=== PATIENT | female | born 1985 | race Hispanic/Latino ===

== ENCOUNTER 2017-01-13 18:15 | Emergency (ER) | payer OTHER ==
[2017-01-13 18:38] VITALS: BMI 28.5
[2017-01-13] MEDS ORDERED: Betamethasone Soluspan 30 mg/5mL Inj Susp IM ONE (18:49)
--- NOTE | 2017-01-13 18:49 | OBHP ---
Datetime: 01/13/2017 18:44 IP Adm Impression: , intrauterine ; No Active Labor IP Admit Plan: Observation/Evaluation; Discharge home Admit Comment, IP Provider: The patient presents to labor and delivery for the administration of alan roids. Patient's 35 weeks history of complete previa. Patient has any uterine contractions l eakage of fluid she reports good movement. Past medical history none Past surgical history none No known drug allergies Social history denies alcohol tobacco use Obstetrical history unremarkable other than placenta previa Review of systems patient denies headache chest pain shortness of breath palpitations nausea vomit ing diarrhea dysuria. Cold intolerance Physical exam see notes Vital signs stable afebrile Intrauterine at 35 weeks total previa Patient for steroids today Patient to follow up in 48 hours Placenta previa precautions provided Follow-up with PMD Pelvic Type - PN: Adequate Extremities - PN: Not Done Abdomen - PN: Normal Back - PN: Normal Breast - PN: Not Done Lungs - PN: Normal Heart - PN: Normal Thyroid - PN: Normal Neurologic - PN: Normal HEENT - PN: Normal General - PN: Normal FHR - Baseline A Provider: 145 Gestation - Est Wks by US: 35.0 Vital Signs Provider: Reviewed IP Chief Complaint: Other NICHD Variability Prov Fetus A: Moderate 6-25bpm NICHD Accel Fetus A IP Provider: 10X10 NICHD Decel Fetus A IP Provider: None Genitourinary Exam: Not Done DTRs - PN: Normal
[2017-01-13 23:56] VITALS: BP 94/63; PULSE 65; RESP 16; TEMP 98; O2SAT 98
== END 2017-01-13 19:40 | disposition home or self-care (01) ==
LOC: H.EROB2 18:15 → H.EROB 18:45 → H.EROB2 19:40
DX: O44.03 Complete placenta previa NOS or without hemorrhage, third trimester (principal); O47.03 False labor before 37 completed weeks of gestation, third trimester; Z3A.35 35 weeks gestation of pregnancy; Z23 Encounter for immunization
CPT/HCPCS: 96372; 99281; J0702

== ENCOUNTER 2017-01-14 18:56 | Emergency (ER) | payer OTHER ==
[2017-01-13 18:38] VITALS: BMI 28.5
[2017-01-14] MEDS ORDERED: Betamethasone Soluspan 30 mg/5mL Inj Susp IM ONE (19:09)
--- NOTE | 2017-01-14 23:02 | OBHP ---
Datetime: 01/14/2017 22:54 IP Adm Impression: , intrauterine ; No Active Labor IP Chief Complaint Other: steroid course IP Admit Plan: Observation/Evaluation; Discharge home Admit Comment, IP Provider: 32-year-old at 35 weeks and 1 day gestational age presents to the ED for second dose of steroid course. Patient with history of placenta previa. Patient without compla ints at this time. Patient denies any vaginal bleeding, leakage of fluids, contractions. Past medical history none Past surgical history none Medications vitamins No known drug allergies Obstetrical history Social history no tobacco, no drugs, alcohol Physical exam: Within physical exam findings Assessment: 31-year-old at 35 weeks 1 day gestational age with complete previa. No evidence of labor at this time. Both maternal well-being and well-being reassuring at this time. Plan: Secondary steroids. Patient has follow-up scheduled this week. Patient discharged home with labor precautions. Comments, ACOG Physical Exam: Biophysical profile 8 out of 8 EGA AdmitDate IP: 35.1 Vital Signs Provider: Reviewed; Within Normal Limits IP Chief Complaint: Other
[2017-01-15 03:21] VITALS: BP 94/56; PULSE 63; RESP 18; TEMP 97.4
--- NOTE | 2017-01-15 08:30 | US ---
PROCEDURE: Biophysical profile ultrasound HISTORY: IUP at 35 wks, complete placenta previa COMPARISON: No priors TECHNIQUE: Limited real-time transabdominal ultrasound examination of the gravid uterus was performed for the purposes of biophysical profile. sonographic anatomy evaluation was not obtained. Biophysical profile measurements and limited measurements of the fetus were performed. FINDINGS: Single live intrauterine gestation is noted with a cephalic presentation. There is evidence of complete placenta previa from a posterior placenta. This is a known entity reported by the technologist, and the patient is scheduled for elective in 2 weeks. There is an 8/8 biophysical profile score. BPD is 90 millimeters, head circumference is 331 millimeters, abdominal circumference is 305 millimeters, femur length is 67 millimeters. Amniotic fluid index is 11.3. Estimated heart rate is 120 beats per minute. IMPRESSION: Single live intrauterine gestation with an estimated gestational age of 35 weeks and 5 day. Biophysical profile 8/8. Complete placenta previa.
== END 2017-01-14 21:43 | disposition home or self-care (01) ==
LOC: H.EROB2 18:56
DX: O44.03 Complete placenta previa NOS or without hemorrhage, third trimester (principal); Z3A.35 35 weeks gestation of pregnancy; Z23 Encounter for immunization
CPT/HCPCS: 76818; 96372; 99282; J0702

== ENCOUNTER 2017-01-25 07:10 | Inpatient (IN) | payer OTHER ==
[2017-01-25 06:56] VITALS: BMI 27.4
[2017-01-25] MEDS: Lactated Ringer's 1,000 ML IV SCH ×3 (07:00→22:31)
--- NOTE | 2017-01-25 07:09 | OBHP ---
Datetime: 01/25/2017 07:03 IP Adm Impression: , intrauterine ; No Active Labor IP Admit Plan: Admit to unit; Initiate Section protocol Admit Comment, IP Provider: Patient is a 32-year-old 1 para 0 at 36 weeks and several days. Patient presents to labor and delivery for an elective primary section secondary to complete placenta previa. Patient received steroids patient reports no complications during her . Bry weston reports good movement no vaginal bleeding no leakage of fluid patient reports occasional cramping. Past medical history none Past surgical history rhinoplasty No known drug allergies Social history denies alcohol tobacco use Medications vitamins Review of systems patient denies headache chest pain shortness of breath palpitations nausea vomit ing diarrhea dysuria vaginal bleeding he had cold intolerance musculoskeletal or neurological complai nts Vital signs stable afebrile Physical exam she notes Intrauterine at 36+ weeks Total placenta previa Admit to the hospital for postoperative care Informed consent was obtained we discussed the risk of bleeding infection organ injury to bowel bl adder or ureter. The patient was informed placenta previa has a propensity to hemorrhage patient is a garnica that there is associated risk of hysterectomy and massive transfusion. The patient was given the opportunity to ask questions questions answered. She will plan of care Pelvic Type - PN: Adequate Extremities - PN: Normal Abdomen - PN: Normal Back - PN: Normal Breast - PN: Normal Lungs - PN: Normal Heart - PN: Normal Thyroid - PN: Normal Neurologic - PN: Normal HEENT - PN: Normal General - PN: Normal Presentation-Admit: Vertex FHR - Baseline A Provider: 145 Gestation - Est Wks by US: 36.0 EGA AdmitDate IP: 36.5 Vital Signs Provider: Reviewed IP Chief Complaint: Other NICHD Variability Prov Fetus A: Moderate 6-25bpm NICHD Accel Fetus A IP Provider: 10X10 FHR Category Provider Fetus A: Category I NICHD Decel Fetus A IP Provider: None Genitourinary Exam: Normal DTRs - PN: Normal
[2017-01-25] MEDS ORDERED: ceFAZolin IV 1 gm in Dextrose 1 GM/50 ML BAG IVPB STA (07:13)
[2017-01-25 07:19] VITALS: TEMP 98.6; O2SAT 100
[2017-01-25] MEDS ORDERED: Ammonia 2% Inhalant ONE (07:21)
[2017-01-25 07:34] LABS: BASO % 0.2 % (0.0-2.0); EOS % 0.5 % (0.0-4.0); HEMATOCRIT 34.8 % (34.0-47.0); LYMPH # 1.9 K/uL (1.0-4.3); MEAN CELL VOLUME 92.3 fl (81.0-99.0); MEAN CORPUSCULAR HEMOGLOBIN 31.9 pg (27.0-31.0); MEAN CORPUSCULAR HGB CONC 34.5 g/dL (33.0-37.0); MEAN PLATELET VOLUME 9.5 fl (7.2-11.7); MONO # 0.8 K/uL (0.0-0.8); MONO % 7.5 % (0.0-10.0); NEUT # 8.3 K/uL (1.8-7.0); NEUT % 74.8 % (50.0-75.0); RED CELL DISTRIBUTION WIDTH 13.8 % (11.5-14.5)
[2017-01-25] MEDS ORDERED: ePHEDrine 50 mg/ml Inj ONE (07:44)
[2017-01-25] MEDS ORDERED: Morphine 1 mg/ml preservative-free Inj(Duramorph) ONE (07:44)
[2017-01-25] MEDS ORDERED: Phenylephrine 10 mg/ml Inj ONE (07:44)
[2017-01-25] MEDS: Oxytocin 30 units/LR 500ML 30 U/500 ML BAG IV SCH ×3 (08:29→12:30)
[2017-01-25] MEDS ORDERED: DiphenhydrAMINE 50 mg/ml Inj IVP PRN (09:22)
--- NOTE | 2017-01-26 00:14 | OP ---
PROCEDURE DATE: PREOPERATIVE DIAGNOSES: Intrauterine at 36 weeks 5 days, history of complete placenta previa. POSTOPERATIVE DIAGNOSES: Intrauterine at 36 weeks 5 days, history of complete placenta previa. PROCEDURE: Primary low flap transverse section via Pfannenstiel skin incision. SURGEON: Kirill Nelson MD LIVE AMMUNITION INSPECTOR: Deacon Ramos DO. TYPE OF ANESTHESIA: Spinal. ANESTHESIA ADMINISTERED BY: Josemanuel Regan MD IV FLUID INTAKE: The patient received approximately 2 liters D5 LR intraoperatively. ESTIMATED BLOOD LOSS: 900 mL. URINE OUTPUT: Levin catheter put out approximately 200 mL of clear urine. OPERATIVE FINDINGS: A baby girl, Apgars 9 and 9, weighing 2175 g. Normal uterus, tubes, and ovaries were identified. Total complete previa was noted. DESCRIPTION OF PROCEDURE: After informed consent was obtained, the patient was taken to the operating room where she was given spinal anesthesia. The patient was then prepped and draped in a normal sterile fashion. A Pfannenstiel skin incision was then made with scalpel and carried down to the underlying layer of fascia. The fascia was nicked in the midline. The fascial incision was then extended laterally with curved Mejia scissors. The fascia was then grasped with Simba clamps, elevated up and the rectus muscles were then dissected off using both sharp and blunt dissection. Attention was then turned to the inferior aspect of the fascial incision, which in a similar fashion was elevated up with Simba clamps and dissected off using both sharp and blunt dissection. The rectus muscles were then in the midline. The peritoneum identified and entered sharply with the Metzenbaum scissors. The peritoneal incision was then extended superiorly and inferiorly with good visualization of the bladder. The bladder blade was then inserted. The vesicouterine peritoneum was identified and entered sharply with the Metzenbaum scissors. The incision was then extended laterally and the bladder flap was created digitally. The bladder blade was then readjusted. A low transverse incision was then made with a scalpel. The uterine incision was then extended laterally with curved bandage scissors. The 's head was then delivered atraumatically. The nose and mouth were suctioned with DeLee suction trap. The cord was clamped and cut. The was handed off to the waiting pediatricians. The placenta was removed manually. The uterus was exteriorized and cleared of all clots and debris. The uterine incision was repaired with 0 Vicryl in a running locked fashion. Second layer of the same suture was used to obtain excellent hemostasis. The uterus was then returned to the abdomen. The abdomen was then copiously irrigated. The irrigant was removed with a suction device. The gutters were then cleared of all clots and debris. The uterine incision was reexamined, hemostasis was noted. The peritoneum was then closed with 2-0 Vicryl in a running fashion. The muscles were re-approximated with 0 Vicryl in an interrupted fashion. The fascia was closed with 0 Vicryl in a running fashion. The skin was closed with 4-0 on a Gino needle. All sponge, lap, needle and instrument counts were correct x2, and the patient was taken to the recovery room in awake and stable condition. Note, Dr. Deacon Ramos was the assistant store manager operations in the procedure, he was instrumental in the care of the patient, he helped create exposure and obtain hemostasis, was helpful in delivery of the infant and closure of the patient. The procedure would not have been possible without his assistance. Kirill Nelson MD
[2017-01-26 05:34] LABS: BASO % 0.2 % (0.0-2.0); EOS % 0.2 % (0.0-4.0); HEMATOCRIT 23.8 % (34.0-47.0); MEAN CELL VOLUME 93.6 fl (81.0-99.0); MEAN CORPUSCULAR HEMOGLOBIN 32.3 pg (27.0-31.0); MEAN CORPUSCULAR HGB CONC 34.5 g/dL (33.0-37.0); NEUT # 12.2 K/uL (1.8-7.0); NEUT % 85.6 % (50.0-75.0); NRBC % 0.1 % (0.0-0.0); PLATELET COUNT 111 K/uL (130-400); RED CELL DISTRIBUTION WIDTH 13.8 % (11.5-14.5); WHITE BLOOD COUNT 14.2 K/uL (4.8-10.8)
[2017-01-26] MEDS: Lactated Ringer's 1,000 ML IV SCH (06:39)
--- NOTE | 2017-01-26 08:27 | OBPPN ---
Datetime: 01/26/2017 08:22 PP Pain Prov: Within normal limits PP Nausea Prov: Denies PP Flatus Prov: Yes PP BM Prov: No PP Abdomen/Uterus Prov: Normal PP Lochia Prov: Normal PP C/S Incision Prov: Normal PP Progress Prov: Normal PP Comments Phys Exam Prov: Incision w/ bandage in place PP Impression Prov: Normal progression PP Plan Prov: Continue present management PP Progress Note Prov: POD 1 s/p c/s for previa, doing well, breast and bottle feeding OOB today Continue current care Vital Signs Provider PP: Reviewed
[2017-01-26 08:46] LABS: BASOPHIL 1 % (0-2); METAMYELOCYTE 1 % (0-0); MYELOCYTE 1 % (0-0); NEUTROPHIL 85 % (42-75); TOTAL CELLS COUNTED 100
[2017-01-26 08:49] LABS: GIANT PLATELETS PRESENT; LARGE PLATELETS PRESENT
[2017-01-26] MEDS ORDERED: Oxytocin 30 units/LR 500ML 30 U/500 ML BAG IV ONE (09:04)
--- NOTE | 2017-01-26 10:03 | OBPPN ---
Datetime: 01/26/2017 09:42 PP Pain Prov: Within normal limits PP Nausea Prov: Denies PP Flatus Prov: Yes PP Abdomen/Uterus Prov: Normal PP Lochia Prov: Abnormal PP C/S Incision Prov: Normal PP Progress Prov: Normal PP Comments Phys Exam Prov: Incision w/ bandage in place PP Progress Note Prov: POD 1 s/p c/s for previa. FOB called out that his was bleeding About 250 mL dark clot seen between her legs. Bimanual massage performed. Bleeding became watery, no more clots seen. IV pitocin 30 in 500 mL started at 999 mL /hr. 0.2 IM methergine given Levin placed in bladder 1 unit of blood ordered Will observe closely
[2017-01-26 17:36] LABS: HEMATOCRIT 29.2 % (34.0-47.0); MEAN CELL VOLUME 94.6 fl (81.0-99.0); MEAN CORPUSCULAR HEMOGLOBIN 31.5 pg (27.0-31.0); MEAN CORPUSCULAR HGB CONC 33.3 g/dL (33.0-37.0); RED CELL DISTRIBUTION WIDTH 14.1 % (11.5-14.5); WHITE BLOOD COUNT 16.4 K/uL (4.8-10.8)
[2017-01-26] MEDS ORDERED: Oxycodone/Acetaminophen 5/325 mg Tab PO PRN (19:59)
[2017-01-26] MEDS: Oxycodone/Acetaminophen 5/325 mg Tab PO PRN (20:19)
[2017-01-27] MEDS: Oxycodone/Acetaminophen 5/325 mg Tab PO PRN ×4 (08:12→22:37)
--- NOTE | 2017-01-27 09:41 | OBPPN ---
Datetime: 01/27/2017 09:37 PP Pain Prov: Within normal limits PP Nausea Prov: Denies PP Flatus Prov: Yes PP Breasts Prov: Normal PP Heart Prov: Normal PP Lungs Prov: Normal PP Abdomen/Uterus Prov: Normal PP Lochia Prov: Normal PP Vulva/Perineum Prov: Normal PP CVA Tenderness Prov: Normal PP Extremities Prov: Normal PP C/S Incision Prov: Normal PP Progress Prov: Normal PP Impression Prov: Normal progression PP Plan Prov: Continue present management PP Progress Note Prov: Patient denies Cp, no SOB, no N/V, tolerating PO diet, ambulating/voiding wel l, mild lochia, abdominal pain tolerable with meds, +flatus, +BM, A/P POD #2 1. Continue reg diet 2. Percocet/motrin prn pain 3. Colace prn constipation 4. Encourage ambulation/ Vital Signs Provider PP: Reviewed; Within Normal Limits
[2017-01-27] MEDS: Simethicone 80 mg Chewtab PO PRN (18:13)
[2017-01-28] MEDS: Oxycodone/Acetaminophen 5/325 mg Tab PO PRN ×2 (07:52→13:54)
[2017-01-28] MEDS: Simethicone 80 mg Chewtab PO PRN (09:09)
--- NOTE | 2017-01-28 09:42 | OBPPN ---
Datetime: 01/28/2017 09:37 PP Pain Prov: Within normal limits PP Nausea Prov: Denies PP Flatus Prov: Yes PP BM Prov: Yes PP Breasts Prov: Not Done PP Heart Prov: Normal PP Lungs Prov: Normal PP Abdomen/Uterus Prov: Normal PP Lochia Prov: Normal PP Vulva/Perineum Prov: Not Done PP CVA Tenderness Prov: Normal PP Extremities Prov: Normal PP C/S Incision Prov: Normal PP Progress Prov: Normal PP Impression Prov: Normal progression PP Plan Prov: Discharge PP Progress Note Prov: She feels abd pain aroound incision. She had some VB this AM. She is ableto ambulate without dizziness/SOB. Tolerated diet. Nurse changed pad -= noted to be normal lochia Hb/Hct 12/30 A: S/P c-sectoin day 3 (previa) anemia postop - given one unit PLAN; will discharge home with Motrin Percoset and FeSo4. adivsed if more VB, signs of anmeia to come back to ER She understood Vital Signs Provider PP: Reviewed
[2017-01-28 21:11] VITALS: BP 83/54; PULSE 72; RESP 20
== END 2017-01-28 16:00 | disposition home or self-care (01) | DRG 765 ==
LOC: H.L&D 07:10 → H.OB/GYN 11:45
PROVIDERS: ADMIT Obstetrics & Gynecology Gynecology; ATTEND Obstetrics & Gynecology Gynecology
PROC: 10D00Z1 Extraction of Products of Conception, Low, Open Approach (ICD-10-PCS; principal; 2017-01-25)
PROC: 4A1HXCZ Monitoring of Products of Conception, Cardiac Rate, External Approach (ICD-10-PCS; 2017-01-25)
DX: O44.03 Complete placenta previa NOS or without hemorrhage, third trimester (principal); O60.14X0 Preterm labor third trimester with preterm delivery third trimester, not applicable or unspecified; Z37.0 Single live birth; Z3A.36 36 weeks gestation of pregnancy